=== PATIENT | female | born 1950 | race Caucasian/White ===

== ENCOUNTER 2021-08-15 16:58 | Observation (INO) ==
[2021-08-15] MEDS ORDERED: Perflutren Lipid Microsphere 1.3 ML in 0.9 % Sodium Chloride 8.7 ML IVP PRN (23:17)
[2021-08-15] MEDS ORDERED: Ondansetron 4 MG/2 ML VIAL IVP PRN (23:34)
[2021-08-15] MEDS ORDERED: Naloxone 0.4 MG/ML INJ IVP PRN (23:34)
[2021-08-15] MEDS ORDERED: Acetaminophen 325 MG TABLET PO PRN (23:34)
[2021-08-15] MEDS ORDERED: Morphine Sulfate 2 MG/ML SYRINGE IVP PRN (23:37)
[2021-08-15] MEDS ORDERED: Nitroglycerin 0.4 MG TAB.SUBL SL PRN (23:37)
[2021-08-16 00:57] LABS: BUN/Creatinine Ratio 25 (6-26); Blood Urea Nitrogen 19 mg/dL (8-23); Carbon Dioxide 26 mEq/L (23-29); Chloride 106 mEq/L (98-107); Cholesterol 163 mg/dL (< 200); Glucose 109 mg/dL (70-105); HDL Cholesterol 55 mg/dL (40-59); LDL Cholesterol,Calculated 82 mg/dL (< 100); Magnesium 2.1 mg/dL (1.6-2.6); Osmolality,Calculated 293 (280-300); Potassium 3.7 mEq/L (3.5-5.1); Sodium 140 mEq/L (136-145); Triglycerides 128 mg/dL (< 150); eGFR For African Americans > 60 (> 60); eGFR For Non-African Americans > 60 (> 60)
[2021-08-16 00:59] LABS: % Iron Saturation 8 % (15-50); Iron 31 mcg/dL (50-170); Transferrin 267 mg/dL (203-362)
[2021-08-16 01:00] LABS: Prothrombin Time 11.3 Seconds (9.4-12.1)
[2021-08-16 01:01] LABS: Hematocrit 39.7 % (35.3-44.9); Hemoglobin 13.3 g/dL (11.5-15.4); Mean Corpuscular HGB Conc 33.5 g/dL (31.6-35.5); Mean Corpuscular Hemoglobin 29.9 pg (28.0-33.3); Mean Corpuscular Volume 89.2 fL (83.0-100.0); Mean Platelet Volume 11.5 fL (9.4-12.4); Platelet Count 201 K/mcL (140-400); Red Blood Count 4.45 M/mcL (3.82-4.97); Red Cell Distribution Width 12.9 % (11.5-14.5); White Blood Count 6.3 K/mcL (4.3-11.1)
[2021-08-16 01:03] LABS: Activated Partial Thrombo Time 32.7 Seconds (26.0-36.0)
[2021-08-16 01:17] LABS: Ferritin 59 ng/mL (10-120)
[2021-08-16 01:25] LABS: Folate > 22.3 ng/mL (3.0-16.0); Vitamin B12 > 1500 pg/mL (250-1100)
[2021-08-16 01:32] LABS: Estimated Average Glucose 120 mg/dl; Hemoglobin A1C 5.8 %
[2021-08-16] MEDS: *HR* Heparin 5,000 UNIT/ML VIAL SQ SCH ×2 (05:59→14:51)
[2021-08-16 06:31] LABS: Bacteria,Urine Few per hpf (None-Few); Bilirubin,Urine Negative (Negative); Blood,Urine Negative (Negative); Clarity,Urine Clear (Clear); Color,Urine Yellow (Yellow); Glucose,Urine (UA) Normal (Normal); Ketones,Urine Negative (Negative); Leukocyte Esterase,Urine Trace (Negative); Mucus,Urine Few per lpf (None-Few); Nitrite,Urine Negative (Negative); PH,Urine 6.5 pH Units (5.0-8.0); Protein,Urine Trace mg/dL (Neg-Trace); RBC,Urine 0-3 per hpf (0-3); Specific Gravity,Urine 1.029 (1.010-1.025); Urobilinogen,Urine Normal (Normal)
[2021-08-16] MEDS ORDERED: Regadenoson 0.4 MG/5 ML SYRINGE IVP ONE (07:32)
[2021-08-16] MEDS ORDERED: ESOMEPRAZOLE MAGNESIUM 20 MG PO SCH (09:00)
[2021-08-16] MEDS: Aspirin Enteric Coated 81 MG Tablet PO SCH ×2 (13:04→13:06)
[2021-08-16] MEDS: Celecoxib 200 MG CAPSULE PO SCH ×3 (13:04→13:06)
[2021-08-16 15:59] VITALS: BP 155/77; PULSE 80; TEMP 97.8; O2SAT 95
[2021-08-16] MEDS ORDERED: Clobetasol Propionate 0.05% 15 GM Cream Tube TP SCH (21:00)
== END 2021-08-16 18:16 | disposition home or self-care (01) ==
LOC: 3BNU → SUATTDRO 20:26
PROVIDERS: ADMIT Internal Medicine; ATTEND Student in an Organized Health Care Education/Training Program